=== PATIENT | female | born 1945 | race Caucasian/White ===

== ENCOUNTER → 2017-01-22 | Day surgery (SDC) | payer OTHER ==
[~2017-01-22] MED LIST: ASPI81TA2 PO; ATOR80TA72 PO; DONE10TA7 PO; DULO60CA6 PO; ESZO3TAB PO; FENTANYL PF 100 MCG/2 ML VIAL. IV PRN; FLUO40CA2 PO; FURO20TA3 PO; GLIP5TAB10 PO; HYDR-2762 PO; HYDROMORPHONE 2 MG/ML VIAL. IV PRN; IV RINGERS,LACTATED 1000ML 1,000 ML IV SCH; LEVO75TA5 PO; LIDOCAINE 1% 1 ML SYRINGE. ID PRN; LIDOCAINE 2% PF Vial for OR 5 ML VIAL. ONE; LISI10TA2 PO; LORA10TA3 PO; MECL12.52 PO; MELO7.5T5 PO; MEMA1CAP2 PO; METF500T4 PO; METO50TA2 PO; METO5SOL PO; MORPHINE SULFATE 2 MG/ML DISP.SYRIN. IV PRN; OMEP20TA PO; ONDANSETRON PF 4 MG/2 ML VIAL. IV PRN; PIOG15TA21 PO; PROCHLORPERAZINE 10 MG/2 ML VIAL. IV PRN; PROPOFOL 40 ML IV ONE; PYRI60TA PO
[2017-01-22 07:58] VITALS: BP 165/61
== END | disposition home or self-care (01) ==
LOC: ENDOS 06:30
PROVIDERS: ATTEND Internal Medicine Gastroenterology
DX: K64.0 First degree hemorrhoids (principal); K57.30 Diverticulosis of large intestine without perforation or abscess without bleeding; M19.90 Unspecified osteoarthritis, unspecified site; F32.9 Major depressive disorder, single episode, unspecified; E11.9 Type 2 diabetes mellitus without complications; E78.00 Pure hypercholesterolemia, unspecified; I10 Essential (primary) hypertension; Z72.89 Other problems related to lifestyle; Z90.710 Acquired absence of both cervix and uterus
CPT/HCPCS: 45378; J2704